=== PATIENT | male | born 1945 | race Caucasian/White ===

== ENCOUNTER 2022-06-03 17:09 | Emergency (ER) | payer OTHER, SELFPAY ==
[2022-06-03 17:10] VITALS: BP 144/97; PULSE 84; RESP 16; TEMP 36.5; O2SAT 97; BMI 20.3
[2022-06-03] MEDS: 0.9% Normal Saline 1,000 ML 1000 ML IV (18:43)
[2022-06-03] MEDS: Ondansetron 4 MG/2 ML Vial IV (18:44)
[2022-06-03 18:55] LABS: Absolute Lymphocyte Count 0.54 X10^3/uL (0.83-4.51); Absolute Neutrophil Count 8.1 X10^3/uL (2.0-7.7); Basophil# 0.01 X10^3/uL; Basophil% 0.1 % (0-1); Hemoglobin 12.9 g/dL (13.0-16.5); Lymphocyte # 0.54 X10^3/ul (0.83-4.51); Lymphocyte % 5.9 % (19-41); Mean Corp Hgb Conc 33.9 g/dL (32-36); Mean Corpuscular Hgb 31.7 pg (27.0-32.0); Mean Corpuscular Volume 93.4 fL (80-94); Monocyte# 0.53 X10^3/uL; Monocyte% 5.8 % (0-10); NRBC Flagged by Analyzer 0 % (0-5); Neutrophil # 8.08 X10^3/uL (2.7-7.7); Neutrophil % 87.7 % (47-70); POSITIVE DIFFERENTIAL YES; Platelet Count 174 K/mm3 (150-450); RBC Distribution Width CV 12.8 % (11.6-14.6); RBC Distribution Width SD 44.3 fl (35.1-43.9); Red Blood Count 4.07 M/mm3 (4.6-6.2); White Blood Count 9.2 K/mm3 (4.4-11.0)
[2022-06-03 19:11] LABS: Differential Indicated SCAN CRITERIA MET
[2022-06-03 19:14] LABS: AST(SGOT) 14 U/L (15-37); Alanine Aminotransfer ALT/SGPT 16 U/L (16-61); Albumin, Serum 3.2 g/dL (3.2-5.0); Alkaline Phosphatase 75 U/L (45-117); Anion Gap 8 (5-15); BUN 27 mg/dL (7-18); BUN/Creat Ratio 24.3 RATIO (10-20); Calcium,Total 10.6 mg/dL (8.5-10.1); Chloride 100 mmol/L (98-107); Creatinine, Serum 1.11 mg/dL (0.70-1.30); EST Glomerular Filtration Rate 68 mL/min (>60); Est Glom Filt Rate - Afr Amer 82 mL/min (>60); Estimated Creatinine Clearance 45.01 ml/min; Globulin 3.3 g/dL (2.2-4.2); Glucose 108 mg/dL (74-106); Lipase 71 U/L (73-393); Potassium 4.8 mmol/L (3.5-5.1); Protein, Total 6.5 g/dL (6.4-8.2); Sodium Level 139 mmol/L (136-145); Troponin-I HS 29 pg/mL (3.0-78.0)
--- NOTE | 2022-06-03 19:14 | RAD_ITS ---
STUDY: X-RAY - ABDOMEN/PELVIS REASON FOR EXAM: Male, 77 years old. nusea/vomiting, recent esophageal stent TECHNIQUE: KUB COMPARISON: None. FINDINGS: There is a non-obstructive bowel gas pattern. There is no organomegaly. No abnormal calcifications. Prior lumbar laminectomy and fusion. Prior ORIF left hip. Soft tissues and bony structures are unremarkable. RAD/Abdomen Single View (Portable) IMPRESSION: Nonobstructive abdomen. No acute findings. Electronically Signed: Tracey Pina MD at 19:53 EDT Reading Location ID and State: [id number] / Tel , Service support ,
--- NOTE | 2022-06-03 19:14 | RAD_ITS ---
STUDY: X-RAY CHEST REASON FOR EXAM: Male, 77 years old. chest pain, recent esophageal stent TECHNIQUE: Single AP portable view of the chest. COMPARISON: None. FINDINGS: The lungs are clear and expanded. There is no demonstrated pleural abnormality. Normal size heart. Esophageal stent extends from approximately T6-T11 levels.. Mediastinum and osmel are otherwise unremarkable. Normal visualized pulmonary arteries. Normal visualized aortic arch and descending thoracic aorta. Normal visualized thoracic spine. Normal visualized ribs, clavicles, and shoulders. There is no demonstrated abnormality of the visualized soft tissue structures of the upper abdomen. RAD/Chest 1 View (Portable) IMPRESSION: No acute findings. Electronically Signed: Tracey Pina MD at 19:45 EDT Reading Location ID and State: [id number] / Tel , Service support ,
[2022-06-03 19:15] LABS: Platelet Estimate ADEQUATE (ADEQ); Red Cell Morphology NORM C+C NORMAL (NORM C&C)
--- NOTE | 2022-06-03 21:10 | EX.ED.DYSGE1 ---
HPI History of Present Illness Chief Complaint: Nausea/Vomiting Informant: patient Narrative Narrative: Patient is a 77-year-old male with history of esophageal cancer currently on immunotherapy presenting with inability to swallow and nausea. Patient had an esophageal stent placed yesterday at the [facility]. This was placed by Dr. Taylor. Patient was discharged home with a prescription for Tylenol with codeine. He states since this procedure he has not been able to keep anything down including his own secretions/spit. He states after drinking something he will vomit 10 to 15 minutes later. He has discomfort in the middle of the chest which is slightly improving. He does not currently have a PEG tube. Denies any fever or chills. No other complaints at this time. [facility] Medical History Esophageal neoplasm GERD (gastroesophageal reflux disease) High cholesterol HTN (hypertension) Allergy/AdvReac Type Severity Reaction Status Date / Time No Known Allergies Allergy Verified 06/03/22 17:10 Social History Smoking Status: Former smoker ROS ROS ED Constitutional Constitutional ED: Denies chills or fever(s) Eyes Eyes: Denies change in vision ENT ENT ED: Denies sore throat Cardiovascular Cardiovascular: Reports chest pain; Denies palpitations Respiratory/Chest Respiratory/Chest: Denies cough or dyspnea Gastrointestinal Gastrointestinal: Reports nausea and vomiting; Denies abdominal pain Musculoskeletal Musculoskeletal: Denies arthralgias or myalgias Integumentary Denies rash Neurologic Neurologic: Reports weakness; Denies headache(s) Psychiatric Psychiatric: Denies anxiety Hematologic/Lymphatic Hematologic/Lymphatic: Denies easy bleeding or easy bruising EXAM Physical Exam Const Vital Signs: 06/03/22 17:10 06/03/22 21:52 Temperature 97.7 F L Temperature Source Temporal Pulse Rate 84 89 Respiratory Rate 16 15 Blood Pressure 144/97 H 146/77 H Blood Pressure Mean 112 100 Pulse Ox 97 95 Oxygen Delivery Method Room Air Room Air Positive well nourished and well developed General Appearance ED: well developed and NAD HEENT Reports moist mucous membranes HEENT Narrative: No drooling on exam Eyes PERRL and EOMs intact bilaterally Neck supple and no JVD Chest Wall inspection of chest normal and palpation of chest normal Resp normal respiratory effort and clear to auscultation bilaterally Cardio regular rate, regular rhythm and no murmurs GI normal to inspection, nondistended, normoactive bowel sounds and non-tender Back/Spine no CVA tenderness Extremity normal to inspection Neuro oriented x3 Neuro Narrative: No focal deficits appreciated Motor Exam: general weakness Psych mental status grossly normal Skin no rashes or lesions noted and no wounds MDM MDM MDM Narrative Medical decision making narrative: Patient is evaluated for inability to tolerate p.o. after recent esophageal stenting procedure. Case discussed with Dr. Boykin, GI on-call, who recommends x-rays to visualize position of the stent. States that there could be swelling around the stent that can cause this or the stent can sometimes migrate/move and cause an obstruction. Patient is given IV fluid and Zofran. Basic labs checked which are largely normal. Does not have laboratory findings consistent with severe dehydration. Patient is given of p.o. challenge and does not tolerate involvements the water approximately 10 minutes later. [facility]. [facility] of the [facility]. Discussed observation of the ER until the morning when we can get a hold of [facility] versus admission to the hospital for further IV fluids until transfer to the [facility] can be arranged. Patient states he really just like to go home and he will call his surgeon or go to the [facility] ER in the morning. Patient counseled on the risk of dehydration so she is unable to tolerate any fluids. He did receive a liter of IV fluids in the ER. Will sign out AGAINST MEDICAL ADVICE. Counseled on the risk of dehydration, further decompensation, endorgan damage and even . He verbalizes understanding with this. He has capacity to make this decision. Family is at the bedside that also understands. Encouraged to return to the emergency room if it anytime he changes his mind or develops any further symptoms. Highly encouraged to contact his surgeon in the morning as he likely will need further intervention/management of his symptoms. Lab Data Labs: Laboratory Results - last 24 hr 06/03/22 06/03/22 18:45 18:45 WBC 9.2 RBC 4.07 L Hgb 12.9 L Hct 38.0 L MCV 93.4 MCH 31.7 MCHC 33.9 RDW Std Deviation 44.3 H RDW Coeff of April 12.8 Plt Count 174 MPV 10.0 Immature Gran % (Auto) 0.500 Neut % (Auto) 87.7 H Lymph % (Auto) 5.9 L [place] % (Auto) 5.8 Eos % (Auto) 0.0 Baso % (Auto) 0.1 Absolute Neuts (auto) 8.1 H Absolute Lymphs (auto) 0.54 L Nucleated RBC % 0 Differential Comment Platelet Estimate ADEQUATE RBC Morphology NORM C+C Sodium 139 Potassium 4.8 Chloride 100 Carbon Dioxide 31.0 Anion Gap 8 BUN 27 H Creatinine 1.11 Estim Creat Clear Calc 45.01 Est GFR (MDRD) Af Amer 82 Est GFR (MDRD) Non-Af 68 BUN/Creatinine Ratio 24.3 H Glucose 108 H Calcium 10.6 H Total Bilirubin 0.70 AST 14 L ALT 16 Alkaline Phosphatase 75 Troponin I High Sens 29 Total Protein 6.5 Albumin 3.2 Globulin 3.3 Albumin/Globulin Ratio 1.0 Lipase 71 L Radiography Chest X-Ray - ED: 1 View, Read by ED Physician, Read by Radiologist, No Acute Disease and - (Esophageal stent in place) Diagnostic Testing: Clinical Impression(s) from Imaging Studies Chest X-Ray 06/03/22 19:14 IMPRESSION: No acute findings. Electronically Signed: Tracey Pina MD at 19:45 EDT Reading Location ID and State: Minh Ayala MD Tel , Service support , KUB X-Ray 06/03/22 19:14 IMPRESSION: Nonobstructive abdomen. No acute findings. Electronically Signed: Tracey Pina MD at 19:53 EDT Reading Location ID and State: Minh Ayala MD Tel , Service support , Rhythm Strip Rhythm Strip: Sinus Rhythm Rate: 52 Ectopy: None EKG Initial EKG: Attestation: I personally reviewed and interpreted this EKG as follows: Interpretation: Sinus Bradycardia Comments: Sinus bradycardia at a rate of 52 Normal axis Occasional PVC Normal intervals Normal ST segments Discharge Plan Triage Chief Complaint: Nausea/Vomiting ED Provider: Deborah Rizvi Dx/Rx/DC Orders Clinical Impression: Vomiting, Acute esophageal obstruction, History of esophageal cancer [facility] [Primary [facility] Provider] - Activity Restrictions/Additional Instructions: I suspect there is either swelling around your esophageal stent or your esophageal stent might have migrated and is obstructing the flow from your esophagus into your stomach. Regardless this needs evaluation by your physician that placed the stent. Please call them in the morning, return to our emergency room or go to the [facility] emergency room for further treatment and evaluation of this. Disposition Disposition: Against Medical Advice Discharge Date/Time: 06/03/22 22:46
--- NOTE | 2022-06-03 21:14 | NURSING ---
[facility] THE [facility] AT [phone] AND THE BED CONTROL WAS UNAVAILABLE AND HAD TO LEAVE A VM CALLED THE [facility] AT [phone] AND BED CONTROL WAS STILL UNAVAILABLE
[2022-06-03 21:52] VITALS: BP 146/77; PULSE 89; RESP 15; O2SAT 95
== END 2022-06-03 22:46 | disposition left against medical advice (07) ==
PROVIDERS: Emergency Provider Emergency Medicine; Visit Provider Emergency Medicine
DX: K22.2 Esophageal obstruction (principal); R13.0 Aphagia; R11.2 Nausea with vomiting, unspecified; E78.00 Pure hypercholesterolemia, unspecified; I10 Essential (primary) hypertension; Z87.891 Personal history of nicotine dependence; Z85.01 Personal history of malignant neoplasm of esophagus
CPT/HCPCS: 71045; 74018; 80053; 83690; 84484; 85025; 93005; 96361; 96374; 99283; J7030; A4216; J2405